=== PATIENT | male | born 1945 | race Caucasian/White ===

== ENCOUNTER 2017-10-10 09:06 | Day surgery (SDC) | payer MEDICARE, OTHER ==
[~2017-10-10] VITALS: Ht 180.3 cm; Wt 74.7 kg
[~2017-10-10 09:06] MED LIST: PRILOSEC 20MG20 MG PO; ZESTRIL 20MG TA20 MG PO; ZYLOPRIM 100MG100 MG PO
[2017-10-10 09:53] VITALS: BP 147/86; PULSE 74; TEMP 98.8
[2017-10-10 11:15] VITALS: BP 146/84; PULSE 82; TEMP 98.7
[2017-10-10 11:30] VITALS: BP 141/83; PULSE 83
[2017-10-10 11:45] VITALS: BP 141/80; PULSE 75
[2017-10-10 11:55] VITALS: BP 148/95; PULSE 77
== END 2017-10-10 12:05 | disposition home or self-care (01) ==
LOC: SDCO 09:06
DX: K22.2 Esophageal obstruction (principal); K29.30 Chronic superficial gastritis without bleeding; I10 Essential (primary) hypertension; M10.9 Gout, unspecified; Z85.01 Personal history of malignant neoplasm of esophagus
CPT/HCPCS: C1726; J2250; J3010; J7030

== ENCOUNTER 2019-03-24 21:54 | Emergency (ER) | payer MEDICARE, OTHER ==
[~2019-03-24] VITALS: Ht 180.3 cm; Wt 79.5 kg
[2019-03-24 21:58] VITALS: BP 134/71; TEMP 97.7
[2019-03-24] MEDS ORDERED: MEDROL 4MG DOSPA4 MG PO (22:39)
[2019-03-24] MEDS ORDERED: SUDAFED60 MG PO (22:39)
[2019-03-24 23:09] LABS: BASO % 0.4 % (0.0-2.0); EOS # 0.7 (0.0-0.7); EOS % 7.3 % (0-4.0); GRAN # 5.5 (1.4-6.5); GRAN % 61.1 % (42.2-75.2); HEMATOCRIT 41.2 % (42.0-52.0); HEMOGLOBIN 13.5 g/dl (13.5-18.0); LYMPH # 1.9 (1.2-3.4); LYMPH % 21.2 % (20.0-51.0); MEAN CELL VOLUME 98 fl (80.0-100.0); MEAN CORPUSCULAR HEMOGLOBIN 32 pg (27.0-31.0); MEAN CORPUSCULAR HGB CONC 33 g/dl (33.0-37.0); MEAN PLATELET VOLUME 8.8 fl (7.4-10.4); MONO # 0.9 (0.1-0.6); MONO % 9.7 % (1.7-9.3); PLATELET COUNT 354 K/mm3 (130-400); RED BLOOD COUNT 4.19 M/mm3 (4.20-5.60); REDCELL DISTRIBUTION WIDTH-CV 13.4 % (11.5-14.5)
[2019-03-24 23:20] LABS: CALCIUM 9.2 mg/dL (8.4-10.2); CREATININE, serum 0.99 (0.66-1.25); POTASSIUM 4.8 mmol/L (3.4-5.0)
[2019-03-24 23:55] VITALS: PULSE 99
== END 2019-03-24 23:55 | disposition home or self-care (01) ==
LOC: COL.ER 21:54
PROVIDERS: Physician Assistant
DX: H93.13 Tinnitus, bilateral (principal); F17.210 Nicotine dependence, cigarettes, uncomplicated
CPT/HCPCS: J7512

== ENCOUNTER 2021-08-19 15:20 | Observation (INO) | payer MEDICARE, OTHER ==
[~2021-08-19] VITALS: Ht 180.3 cm; Wt 76.9 kg
[~2021-08-19 15:20] MED LIST changes: +MEDROL 4MG DOSPA4 MG PO; +SUDAFED60 MG PO
[2021-08-19 15:55] LABS: BASO # 0.1 K/mm3 (0.0-0.2); BASO % 0.6 % (0.0-2.0); EOS # 0.4 K/mm3 (0.0-0.7); EOS % 3.3 % (0.0-4.0); GRAN # 7.8 K/mm3 (1.4-6.5); GRAN % 70.4 % (42.2-75.2); HEMATOCRIT 37.9 % (42.0-52.0); LYMPH # 1.7 K/mm3 (1.2-3.4); LYMPH % 15.1 % (20.0-51.0); MEAN CELL VOLUME 94 fl (80.0-100.0); MEAN CORPUSCULAR HEMOGLOBIN 32 pg (27-31); MEAN CORPUSCULAR HGB CONC 34 g/dl (33.0-37.0); MEAN PLATELET VOLUME 9.3 fl (7.4-10.4); MONO # 1.1 K/mm3 (0.1-0.6); MONO % 10.3 % (1.7-9.3); PLATELET COUNT 357 K/mm3 (130-400); RED BLOOD COUNT 4.05 M/mm3 (4.20-5.60); REDCELL DISTRIBUTION WIDTH-CV 12.9 % (11.5-14.5)
[2021-08-19 16:15] LABS: INR 1.1 (0.8-3.0); PROTHROMBIN TIME 12.7 SECONDS (9.7-12.8)
[2021-08-19 16:16] LABS: ALBUMIN 3.9 gm/dL (3.4-4.8); CALCIUM 8.9 mg/dL (8.4-10.2); CREATININE, serum 0.8 mg/dL (0.72-1.25); POTASSIUM 3.8 mmol/L (3.5-4.5); TOTAL PROTEIN 7.3 gm/dL (6.2-8.1)
[2021-08-19 16:27] LABS: TROPONIN-I 0.099 ng/mL (0.00-0.033)
[2021-08-19] MEDS ORDERED: COMPLETE MULTI1 TAB PO (16:32)
[2021-08-19 20:13] VITALS: BP 135/74; PULSE 80; TEMP 97.7
--- NOTE | 2021-08-19 20:18 | NUR ---
Admitted to medical floor, VSS, states left arm aching 2/10 at this time, no SOB at this time, no chest pain, states has some ringing in ears which is common for him, heparin drip at 9.5cc/hr- next hep xa at 2230. Alert/oriented, Steady on feet.
[2021-08-20] VITALS (14 sets, daily range): BP systolic 118–151; BP diastolic 55–74; PULSE 65–83; TEMP 97.5–98.4
--- NOTE | 2021-08-20 05:45 | NUR ---
Very quiet night, no changes, no chest pain, has been NPO after MN for heart cath today, heparin drip at 8.5cc/hr,, waiting results of most recent hepxa
--- NOTE | 2021-08-20 07:15 | NUR ---
REPORT RCVD FROM [facility]. WAITING HEPXA RESULT THAT WERE DRAWN AT 0557, CALLED LAB, 0714 NOT SCANNED INTO LAB AT THIS TIME. JUST ARRIVED TO LAB AT THIS TIME. BRIT FROM LAB STATES THEY WILL RUN IT SOON POSSIBLE, WILL CALL LAB IN 1 HOUR FOR RESULTS.
[2021-08-20 07:32] LABS: BASO # 0.1 K/mm3 (0.0-0.2); BASO % 0.8 % (0.0-2.0); EOS # 0.7 K/mm3 (0.0-0.7); EOS % 8.1 % (0.0-4.0); GRAN # 5.6 K/mm3 (1.4-6.5); GRAN % 62.8 % (42.2-75.2); HEMATOCRIT 39.3 % (42.0-52.0); HEMOGLOBIN 13.5 g/dl (13.5-18.0); LYMPH # 1.6 K/mm3 (1.2-3.4); LYMPH % 17.8 % (20.0-51.0); MEAN CELL VOLUME 94 fl (80.0-100.0); MEAN CORPUSCULAR HEMOGLOBIN 32 pg (27-31); MEAN CORPUSCULAR HGB CONC 34 g/dl (33.0-37.0); MEAN PLATELET VOLUME 9.7 fl (7.4-10.4); MONO # 0.9 K/mm3 (0.1-0.6); MONO % 10.2 % (1.7-9.3); PLATELET COUNT 354 K/mm3 (130-400); RED BLOOD COUNT 4.18 M/mm3 (4.20-5.60); REDCELL DISTRIBUTION WIDTH-CV 12.9 % (11.5-14.5)
[2021-08-20 08:00] LABS: ALBUMIN 3.5 gm/dL (3.4-4.8); CALCIUM 8.8 mg/dL (8.4-10.2); CREATININE, serum 0.76 mg/dL (0.72-1.25); MAGNESIUM 1.8 mg/dL (1.6-2.6); POTASSIUM 4.4 mmol/L (3.5-4.5)
--- NOTE | 2021-08-20 08:58 | NUR ---
PT IS HAVING A HEART CATH TODAY IN THE AFTERNOON. PT DENIES ANY PAIN, NO CHEST PAIN, SOME SHORTNESS OF BREATH. NO OTHER CONCERNS AT THIS TIME. CARDIOLOGY PRODUCTION CLOTH CUTTER AT BEDSIDE. DISCUSSED HEART CATH. CONSENT SIGNED.
--- NOTE | 2021-08-20 09:34 | NUR ---
Initial visit; Patient thanked Senior Windows Systems Administrator for looking in on him and offering God's blessings and keeping him in Senior Windows Systems Administrator's prayers.
--- NOTE | 2021-08-20 11:30 | NUR ---
Railroad Auditor and RN-CM met with patient to present and review SAGE form. Patient verbalized understanding and provided signature. SW placed form in chart and provided copy to patient. SW met with patient to discuss discharge planning. Patient lives in [place] with his , Ame (ph#[phone]) and sees Dr. Fleming for primary care. Patient obtains medications from [facility] with no difficulties. Patient does not use any DME and is independent with ADLS. Patient does not have any Advance Directives and does not wish to designate DPOA-[facility] at this time. Discharge Plan: Home
--- NOTE | 2021-08-20 17:52 | NUR ---
See merge for all medication, assessment, intervention, vital sign times.
--- NOTE | 2021-08-20 19:51 | NUR ---
PT RBOUGHT UP FROM [facility] AT 1900. RIGHT RADIAL TR BAND APPLIED. SITE CLEAN/DRY. NO REDNESS/HEMATOMA/DRAINAGE. SITE SOFT WITH 2+ RADIAL PULSE AND 2+ PEDAL PULSES. PT ALERT AND ORIENTED. NOURISHMENT PROVIDED. CONTINUING WITH POST OP VS AND FREQUENTLY ASSESSING PT.
--- NOTE | 2021-08-20 20:18 | NUR ---
1830 - ARRIVED TO PT ROOM FOR EKG, PT NOT IN ROOM AT THIS TIME.
--- NOTE | 2021-08-20 21:55 | NUR ---
2 ML OF AIR REMOVED AT 2114. SITE REMAINED CLEAN/DRY. NO LEAKAGE NOTED. NO BLEEDING NOTED. SITE SIFT WITH 2+ PULSE. 2 ML REMOVED AGAIN AT 2144. SITE SIFT. NO DRAINAGE/BLEEDING/HEMATOMA. WILL CONTINUE TO REMOVE AIR.
--- NOTE | 2021-08-20 22:30 | NUR ---
RELEASED ANOTHER 2 ML FROM TR BAND ON RIGHT RADIAL SITE AT 2200, 3 ML AT 2215, AND THE REMAINING 4 ML AT 2230. SITE REMAINED SOFT WITH A 2+ RADIAL PULSE. NO HEMATOMA/DRAINAGE/BLEEDING FROM SITE. PT DENIES PAIN AT SITE. REPORTS FULL SENSATION. 2+ PEDAL AND DORSALIS PEDAL PULSES PALPATED. CONTINUING WITH POST OP VS, AT THIS TIME PT IS STABLE, WILL CONTINUE TO MONITOR.
--- NOTE | 2021-08-20 22:45 | NUR ---
Pt alert and oriented, calm and cooperative, follows commands. Denies chest pain/SOB at this time. No obvious SOB/dyspnea noted. Remains on room air satting WNL. Pt brought up from cardiac catheterization around 1900. Recieved bedside shift report. Got an immediate set of vitals and assessed the right radial catherization site. TR band was in place on right radial site. Site was soft with a 2+ radial pulse. 2+ pedal and dorsalis pedal pulses noted. Pt reported sensation in the fingers. Began releasing air from TR band 2 hours post op. Air was slowly release. No leakage/bruising/bleeding from the site. Site remained soft with 2+ radial pulse. Post-op VS were taken beginning at 1900. VS stable and pt on room air. Medications administered per order and education provided. Shift assessment was performed. No significant skin issues besides scattered brusing on the upper extremities. Pt has bruising near the radial site where he states he was previously "stuck" by the laboratory. No new bruising noted from the cardiac catheterization procedure. Spoke with , Aem, at bedside and educated her and the patient. Called to update Ame of 's transfer to [facility]. She stated she would be there in the morning to see him. Pt appeared to be forgetful, would often ask the same questions over. Seemed reluctant to going over to [place] this evening, stating "why can't we just do this in the morning", "lets wait and do this in the morning". I re-educated pt on the importance of moving him over this evening and why he was being transfered, he stated he understood and was accepting. [facility] transportation came around 5 to picker and packer patient. I provided bedside report and did an assessment with the lift team. Assessed the right radial site, which was covered with a bandaid. Site remained soft with a 2+ radial pulse. No bleeding/leakage noted. VS stable prior to transferring. Pt in normal sinus rythym and continuing on room air. Provided [facility] team with pt paperwork and called [facility] and gave verbal phone report to the intaking nurse. Pt did not report any questions and left safely with [facility] transport. No concerns at this time.
--- NOTE | 2021-08-20 22:46 | NUR ---
AIR LIFT TEAM ARRIVED TO TRANSPORT PT TO [facility]. PROVIDED LIFT TEAM WITH PT PAPERWORK AND GAVE REPORT. DID A BESIDE ASSESSMENT WITH THE TEAM AND PT. PT VS STABLE. RIGHT RADIAL SITE REMAIN SOFT. NO HEMATOMA/DRAINAGE/LEAKAGE NOTED. SITE COVERED WITH BANDAID. SHOWED RIGHT RADIAL SITE TO AIR LIFT TEAM. WILL CALL REPORT TO [facility] EMERGENCY DEPT AND PROVIDE REPORT TO THE RN.
--- NOTE | 2021-08-23 16:14 | NUR ---
RE:REFERRAL TO CARDIAC REHAB - PT TRANSFERED TO [facility] FOR CABG. STAFF WILL CONTINUE TO FOLLOW AND SCHEDULE POST CABG.
== END 2021-08-20 22:45 | disposition critical access hospital (66) ==
LOC: COL.ER 15:20 → MEDICAL 19:30
PROVIDERS: Emergency Medicine; ADMIT Internal Medicine
DX: I25.10 Atherosclerotic heart disease of native coronary artery without angina pectoris (principal); I24.9 Acute ischemic heart disease, unspecified; I10 Essential (primary) hypertension; M10.9 Gout, unspecified
CPT/HCPCS: 99232-AI; 99239; C1769; G0378; J1644; J2250; J3010; Q9967

== ENCOUNTER 2021-09-17 11:22 | Emergency (ER) | payer MEDICARE, OTHER ==
[~2021-09-17] VITALS: Ht 180.3 cm; Wt 74.1 kg
[~2021-09-17 11:22] MED LIST changes: +COMPLETE MULTI1 TAB PO
[2021-09-17 12:06] VITALS: BP 152/80; TEMP 98.5
[2021-09-17 18:18] VITALS: PULSE 70
== END 2021-09-17 15:35 | disposition home or self-care (01) ==
LOC: COL.ER 11:22
DX: S09.90XA Unspecified injury of head, initial encounter (principal); S01.81XA Laceration without foreign body of other part of head, initial encounter; S41.111A Laceration without foreign body of right upper arm, initial encounter; W18.39XA Other fall on same level, initial encounter

== ENCOUNTER 2021-10-01 12:10 | Outpatient (RCR) | payer MEDICARE, OTHER | END 2021-10-03 | disposition home or self-care (01) | LOC: COL.CR | DX: Z48.812 Encounter for surgical aftercare following surgery on the circulatory system (principal); Z95.1 Presence of aortocoronary bypass graft ==

== ENCOUNTER → 2021-11-03 | Outpatient (RCR) | payer MEDICARE, OTHER | END | disposition home or self-care (01) | LOC: COL.CR | DX: Z48.812 Encounter for surgical aftercare following surgery on the circulatory system (principal); Z95.1 Presence of aortocoronary bypass graft ==